=== PATIENT | female | born 2005 | race Caucasian/White ===

== ENCOUNTER 2024-12-21 16:07 | Emergency (ER) | payer OTHER, SELFPAY ==
[2024-12-21 16:57] LABS: Specific Gravity 1.026 (1.005-1.030)
[2024-12-21 16:58] LABS: Specific Gravity 1.026 (1.005-1.030); Sqamous Epithelial 20-50 /HPF (None Seen); Urine Bacteria <20 /HPF (<20); Urine Bilirubin NEGATIVE (Negative); Urine Blood Trace (Negative); Urine Clarity Extremely Turbid (Clear); Urine Color Light-Orange (Yellow); Urine Crystals Unidentified Moderate /HPF (None Seen); Urine Culture Reflex Order REFLEXED; Urine Glucose NEGATIVE (Negative); Urine Ketones NEGATIVE (Negative); Urine Microscopic Reflex YN ORDER UMIC; Urine Mucus 3+ /HPF (None Seen); Urine Nitrite NEGATIVE (Negative); Urine Protein 2+ (Negative); Urine RBC >50 /HPF (None Seen); Urine Urobilinogen 1+ (Normal); Urine WBC >50 /HPF (<5); Urine WBC Clump Many /HPF (None Seen); Urine Yeast (Budding) Moderate /HPF (None Seen); Urine pH 7.5 (5.0-7.0)
--- NOTE | 2024-12-21 17:40 | EDPHYS ---
Physician Documentation [facility] Tammy Name: Imelda Obregon Age: 19 yrs Sex: Female : 2005 Arrival Date: 12/21/2024 Time: 16:07 Bed 9 Private MD: RDU Physician Nasir Nieves HPI: 12/21 17:29 This 19 yrs old Female presents to ER via Ambulatory with complaints of lele Urinary Problem, . 17:29 The patient presents with urinary symptoms, dysuria, frequency, hesitancy, urgency. lele Onset: The symptoms/episode began/occurred 4 day(s) ago. Modifying factors: The symptoms are alleviated by nothing, the symptoms are aggravated by nothing. Associated signs and symptoms: The patient has no apparent associated signs or symptoms. Severity of symptoms: At their worst the symptoms were mild, in the emergency department the symptoms are unchanged. The patient is sexually active, reportedly has a single partner. The patient has experienced similar episodes in the past, several times. 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 - Infectious Disease History:: Denies. - Social history:: Smoking status: . ROS: 17:34 Constitutional: Negative for fever, chills, and weight loss, Eyes: Negative for injury, lele pain, redness, and discharge, ENT: Negative for injury, pain, and discharge, Neck: Negative for injury, pain, and swelling, Cardiovascular: Negative for chest pain, palpitations, and edema, Respiratory: Negative for shortness of breath, cough, wheezing, and pleuritic chest pain, Back: Negative for injury and pain, : Negative for injury, bleeding, discharge, and swelling, MS/Extremity: Negative for injury and deformity, Skin: Negative for injury, rash, and discoloration, Neuro: Negative for headache, weakness, numbness, tingling, and seizure, Psych: Negative for depression, anxiety, suicide ideation, homicidal ideation, and hallucinations, Allergy/Immunology: Negative for hives, rash, and allergies, Endocrine: Negative for neck swelling, polydipsia, polyuria, polyphagia, and marked weight changes, Hematologic/Lymphatic: Negative for swollen nodes, abnormal bleeding, and unusual bruising, 17:34 Abdomen/GI: Positive for abdominal pain, abdominal cramps, of the suprapubic area, Exam: 17:34 Constitutional: This is a well developed, well nourished patient who is awake, alert, lele and in no acute distress. Head/Face: Normocephalic, atraumatic. Eyes: Pupils equal round and reactive to light, extra-ocular motions intact. Lids and lashes normal. Conjunctiva and sclera are non-icteric and not injected. Cornea within normal limits. Periorbital areas with no swelling, redness, or edema. ENT: Nares patent. No nasal discharge, no septal abnormalities noted. Tympanic membranes are normal and external auditory canals are clear. Oropharynx with no redness, swelling, or masses, exudates, or evidence of obstruction, uvula midline. Mucous membranes moist. Neck: Trachea midline, no thyromegaly or masses palpated, and no cervical lymphadenopathy. Supple, full range of motion without nuchal rigidity, or vertebral point tenderness. No Meningismus. Chest/axilla: Normal chest wall appearance and motion. Nontender with no deformity. No lesions are appreciated. Cardiovascular: Regular rate and rhythm with a normal S1 and S2. No gallops, murmurs, or rubs. Normal PMI, no JVD. No pulse deficits. Respiratory: Lungs have equal breath sounds bilaterally, clear to auscultation and percussion. No rales, rhonchi or wheezes noted. No increased work of breathing, no retractions or nasal flaring. Back: No spinal tenderness. No costovertebral tenderness. Full range of motion. Skin: Warm, dry with normal turgor. Normal color with no rashes, no lesions, and no evidence of cellulitis. MS/ Extremity: Pulses equal, no cyanosis. Neurovascular intact. Full, normal range of motion., bilateral aka Neuro: Awake and alert, GCS 15, oriented to person, place, time, and situation. Cranial nerves II-XII grossly intact. Motor strength 5/5 in all extremities. Sensory grossly intact. Cerebellar exam normal. Normal gait. 17:34 Abdomen/GI: Inspection: abdomen appears normal, Bowel sounds: normal, in all quadrants, Palpation: mild abdominal tenderness, in the suprapubic area, Liver: no appreciated palpable abnormalities, Hernia: not appreciated, 17:34 : CVA tenderness, is absent, Pelvic Exam: is not necessary for this patient, Bladder: tenderness, that is mild, Sexual behavior: the patient is sexually active, and reports a single partner, has had usg at ob's office in [place] , iup , positive fht, no vag bleeding, Vital Signs: 16:28 BP 113 / 65; Pulse 90; Resp 18; Temp 98.4; Pulse Ox 100% on R/A; Weight 70.76 kg; iw Height 5 ft. 5 in. ; 18:11 BP 114 / 62; Pulse 88; Resp 20; Temp 98; Pulse Ox 100% ; kj2 16:28 Body Mass Index 25.96 (70.76 kg, 165.1 cm) MDM: 16:12 Medical Screening Exam initiated [facility] 16:45 Medical Screening Exam initiated [facility] 12/21 16:13 Order name: Urinalysis w/ reflexes; Complete Time: 17:27 [facility] 12/21 16:13 Order name: PREGU; Complete Time: 17:27 [facility] 12/21 17:03 Order name: Urine Culture [facility] 12/21 16:56 Order name: FHT's; Complete Time: 18:32 [facility] 12/21 17:29 Order name: PO challenge; Complete Time: 18:29 [facility] Administered Medications: 18:29 Drug: Cefdinir PO Suspension 300 mg PO once Route: PO; kj2 18:33 Follow up: Response: Medication administered at discharge. kj2 18:29 Drug: Macrobid PO 100 mg PO once; administer with food Route: PO; kj2 18:33 Follow up: Response: Medication administered at discharge. kj2 18:30 Drug: Ondansetron PO 4 mg PO once Route: PO; kj2 18:34 Follow up: Response: Medication administered at discharge. kj2 18:31 Drug: Rocephin (cefTRIAXone) IM 1 grams IM once Route: IM; Site: left gluteus; kj2 18:34 Follow up: Response: Medication administered at discharge. kj2 Disposition Summary: 12/21/24 17:40 Discharge Ordered Notes: Location: Home [facility] Problem: new lele Symptoms: have improved lele Condition: Stable lele Diagnosis - 13 weeks gestation of lele - UTI/ Urinary tract infection, site not specified lele - Dysuria lele Followup: lele - With: Private Physician - When: 2 - 3 days - Reason: Recheck today's complaints, Continuance of care, Re-evaluation by your physician Discharge Instructions: - Discharge Summary Sheet lele - Dysuria lele - Care lele - Urinary Tract Infection, Adult lele - First Trimester of , [id number] lele - Urinary Tract Infection, Adult, Jaat-tg-[id number] lele - First Trimester of [facility] Forms: - Medication Reconciliation Form [facility] - Antibiotic Education lele - Prescription Opioid Use lele - Patient Portal Instructions [facility] - Leadership Thank You Letter [facility] Prescriptions: - cefdinir 300 mg Oral capsule - take 1 capsule ORAL route 2 times per day for 5 days; 10 capsule; Refills: 0, [facility] Product Selection Permitted - ondansetron 4 mg Oral Tablet,disintegrating - take 1 tablet ORAL route every 6-8 hours for 5 days; 20 tablet; Refills: 0, [facility] Product Selection Permitted - Macrobid 100 mg Oral Capsule - take 1 capsule ORAL route every 12 hours for 7 days; 14 capsule; Refills: 0, [facility] Product Selection Permitted Signatures: Dispatcher [employer] Nasir Redman MD MD cha Williams, Irene, RN Ann Menard RN RN kj2 Corrections: (The following items were deleted from the chart) 16:14 16:14 Urinalysis+U.LAB.BRZ ordered. EDMS EDMS 16:14 16:14 Test, Urine+UC.LAB.BRZ ordered. EDMS EDMS
--- NOTE | 2024-12-21 17:40 | ER ---
Nurse's Notes [facility] Tammy Name: Imelda Obregon Age: 19 yrs Sex: Female : 2005 Arrival Date: 12/21/2024 Time: 16:07 Bed 9 Private MD: Diagnosis: 13 weeks gestation of ;UTI/ Urinary tract infection, site not specified;Dysuria Presentation: 12/21 16:27 Chief complaint: Patient states: I'm about 12 weeks , they told me i had a UTI iw when I was 6 weeks , and I still feel burning with urination. Coronavirus screen: At this time, the client does not indicate any symptoms associated with coronavirus-19. Ebola Screen: No symptoms or risks identified at this time. Initial Sepsis Screen: Does the patient meet any 2 criteria? No. Patient's initial sepsis screen is negative. Does the patient have a suspected source of infection? No. Patient's initial sepsis screen is negative. Risk Assessment: Do you want to hurt yourself or someone else? Patient reports no desire to harm self or others. Onset of symptoms. 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 - Infectious Disease History:: Denies. - Social history:: Smoking status: . Screenin:40 [facility] ED Fall Risk Assessment (Adult) History of falling in the last 3 months, kj2 including since admission No falls in past 3 months (0 pts) Confusion or Disorientation No (0 pts) Intoxicated or Sedated No (0 pts) Impaired Gait No (0 pts) Mobility Assist Device Used No (0 pt) Altered Elimination No (0 pt) Score/Fall Risk Level 0 - 2 = Low Risk Maintained a safe environment, Hourly rounding (assess needs \T\ fall precautionary measures) done. Abuse screen: Denies threats or abuse. Denies injuries from another. Nutritional screening: No deficits noted. Tuberculosis screening: No symptoms or risk factors identified. Assessment: 17:40 General: Appears in no apparent distress. Behavior is calm, cooperative. Neuro: Level kj2 of Consciousness is awake, alert, obeys commands, Oriented to person, place, time, situation. Cardiovascular: Patient's skin is warm and dry. Respiratory: Airway is patent Respiratory effort is unlabored. GI: No signs and/or symptoms were reported involving the gastrointestinal system. 17:40 Pain: Complains of pain in suprapubic area Pain currently is 5 out of 10 on a pain kj2 scale. : Reports burning with urination, since yesterday. 18:11 Reassessment: Patient appears in no apparent distress at this time. Patient and/or kj2 family updated on plan of care and expected duration. Pain level reassessed. Patient is alert, oriented x 3, equal unlabored respirations, skin warm/dry/pink. Vital Signs: 16:28 BP 113 / 65; Pulse 90; Resp 18; Temp 98.4; Pulse Ox 100% on R/A; Weight 70.76 kg; iw Height 5 ft. 5 in. ; 18:11 BP 114 / 62; Pulse 88; Resp 20; Temp 98; Pulse Ox 100% ; kj2 16:28 Body Mass Index 25.96 (70.76 kg, 165.1 cm) ED Course: 16:11 Patient arrived in ED. al6 16:12 Nasir Nieves MD is Attending Physician. lele 16:28 Triage completed. iw 16:29 Arm band placed on. iw 16:56 PREGU Sent. iw 16:56 Urinalysis w/ reflexes Sent. iw 17:40 Patient has correct armband on for positive identification. Bed in low position. Call kj2 light in reach. Provided Education on: call light. 17:52 Patient placed in an exam room, on a stretcher. ll1 18:06 Ann Hall, LEATHA is Primary Nurse. kj2 18:10 No provider procedures requiring assistance completed. kj2 18:12 Patient did not have IV access during this emergency room visit. kj2 Administered Medications: 18:29 Drug: Cefdinir PO Suspension 300 mg PO once Route: PO; kj2 18:33 Follow up: Response: Medication administered at discharge. kj2 18:29 Drug: Macrobid PO 100 mg PO once; administer with food Route: PO; kj2 18:33 Follow up: Response: Medication administered at discharge. kj2 18:30 Drug: Ondansetron PO 4 mg PO once Route: PO; kj2 18:34 Follow up: Response: Medication administered at discharge. kj2 18:31 Drug: Rocephin (cefTRIAXone) IM 1 grams IM once Route: IM; Site: left gluteus; kj2 18:34 Follow up: Response: Medication administered at discharge. kj2 Medication: 18:10 VIS not applicable for this client. kj2 Outcome: 17:40 Discharge ordered by . lele 18:11 Discharged to home ambulatory, kj2 18:11 Condition: stable 18:11 Discharge instructions given to patient, 18:32 Patient left the ED. kj2 Signatures: Nasir Nieves MD MD cha Williams, Irene, RN RN iw Thang Moreno RN RN ll1 Ann Hall RN RN kj2 Amanda Little6 Corrections: (The following items were deleted from the chart) 16:31 16:28 BP 113 / 65; Pulse 90bpm; Resp 18bpm; Pulse Ox 100% RA; Temp 98.4F; iw iw
[2024-12-21] MEDS ORDERED: ONDANSETRON 4 MG (ODT) TAB ONE (18:19)
[2024-12-21] MEDS ORDERED: CEFDINIR 300 MG CAP PO ONE (18:19)
[2024-12-21] MEDS ORDERED: NITROFURAN MACRO 100 MG CAP PO ONE (18:19)
[2024-12-21] MEDS ORDERED: CEFTRIAXONE 1000 MG/VIAL ONE (18:19)
[2024-12-21 19:12] VITALS: O2SAT 100
[2024-12-21 19:14] VITALS: BP 114/62; TEMP 98
== END 2024-12-21 18:32 | disposition home or self-care (01) ==
LOC: ER 16:07
DX: O23.41 Unspecified infection of urinary tract in pregnancy, first trimester (principal); N39.0 Urinary tract infection, site not specified; Z3A.13 13 weeks gestation of pregnancy
CPT/HCPCS: 87088; 81001; 87086; 81025; 96372; 99284; Q0162; J0696